=== PATIENT | female | born 1960 | race Caucasian/White ===

== ENCOUNTER 2017-11-08 21:05 | Emergency (ER) | payer MEDICARE, MEDICAID ==
[~2017-11-08 21:05] MED LIST changes: -HYDR-4309 PO; -LEVO112T44 PO; -METF-411 PO; -MIRT-25 PO; -PREG150C33 PO; -SIMV-49 PO
--- NOTE | 2017-11-08 21:08 | ER Report ---
History and Physical Time Seen By MD: 21:08 HPI/ROS CHIEF COMPLAINT: Sharp left upper chest pain HISTORY OF PRESENT ILLNESS: 57-year-old female brought in by EMS from home complaining of sharp left upper sternal chest pain throughout the day. She notes a mild shortness of breath. She notes the pain waxes and wanes. She notes changes with breathing. She's had no productive cough or fever. She denies cardiac history. EMS administered aspirin and gave syringe spray sublingual with some improvement of the pain. Patient denies leg swelling or calf pain. Patient denies GERD symptoms. Patient's a type II diabetic on metformin REVIEW OF SYSTEMS: Respiratory: No cough, no dyspnea. Cardiovascular: As above Gastrointestinal: No vomiting, no abdominal pain. Musculoskeletal: No back pain. Allergies: Coded Allergies: sulfamethoxazole (Verified Allergy, Severe, CHEST TIGHTNESS/SOB, 10/05/15) trimethoprim (Verified Allergy, Severe, CHEST TIGHTNESS/SOB, 10/05/15) Penicillins (Verified Allergy, Mild, FLU SYMPTOMS, 10/05/15) celecoxib (Verified Adverse Reaction, Severe, SEVERE LEG SPASMS, 10/05/15) cephalexin (Verified Adverse Reaction, Severe, SEVERE HEADACHE, 10/05/15) clarithromycin (Verified Adverse Reaction, Severe, NAUSEA/VOMITING, 10/05/15 ) AND SEVERE HEADACHE. levofloxacin (Verified Adverse Reaction, Severe, THRUSH, 10/05/15) Uncoded Allergies: ADHESIVE FORM LIDOCAINE PATCHES (Allergy, Intermediate, HEADACHE, 09/07/11) Home Meds Active Scripts Hydrocodone Bit/Acetaminophen (NORCO 5-325 TABLET) 1 Each Tablet, 1 EACH PO Q4H Y for PAIN, #12 TAB Prov:SHAINA MOREAU DO 11/08/17 Hydrocodone Bit/Acetaminophen (HYDROCODON-ACETAMINOPHEN 5-325) 1 Each Tablet, 1 EACH PO Q4-6H Y for PAIN, #10 TAB 0 Refills Prov:YASIR EPPERSON MD 10/05/15 Reported Medications Mirtazapine (MIRTAZAPINE) 30 Mg Tablet, 30 MG PO QHS 11/08/17 Simvastatin (SIMVASTATIN) 20 Mg Tablet, 10 MG PO QDAY, TAB 11/08/17 Levothyroxine Sodium (SYNTHROID) 112 Mcg Tablet, 112 MCG PO QDAY, TAB 11/08/17 Pregabalin (LYRICA) 150 Mg Capsule, 150 MG PO BID, CAPSULE 11/08/17 Metformin Hcl (METFORMIN HCL) 500 Mg Tablet, 1 TAB PO BID, TAB 11/08/17 Tretinoin 0.025% Cream (TRETINOIN 0.025% CREAM) 20 Gm Cream..g., 20 GM TP, TUB 10/05/15 Simvastatin (SIMVASTATIN) 10 Mg Tablet, 10 MG PO HS, TAB 10/05/15 Minocycline Hcl (MINOCYCLINE HCL) 100 Mg Capsule, 100 MG PO QDAY, CAPSULE 10/05/15 Quetiapine Fumarate (Seroquel) 50 Mg Tablet, 50 MG PO QHS Y 09/19/11 Cetirizine Hcl (Zyrtec) 10 Mg Capsule, 10 MG PO Y 09/07/11 Tramadol Hcl (Ultram) 50 Mg Tab, 100 MG PO TID, 0 Refills 10/25/10 Nitroglycerin (Nitroquick) 0.4 Mg Subl, 0.4 MG SL PRN, 0 Refills As needed for chest pain. 10/25/10 Famotidine (Pepcid) 20 Mg Tab, 20 MG PO BID, 0 Refills 10/25/10 Diazepam (Valium) 5 Mg Tab, 5 MG PO QID, 0 Refills 10/25/10 Baclofen (Lioresal) 10 Mg Tab, 20 MG PO BID, 0 Refills 10/25/10 Valacyclovir Hcl (Valtrex) 1,000 Mg Tablet, 1000 MG PO DAILY, 0 Refills 10/25/10 Multivits,Th W-Ca,Fe,Oth Min (Thera M) 1 Tab Tablet, 1 TAB PO DAILY, 0 Refills 10/25/10 Escitalopram Oxalate (Lexapro) 20 Mg Tablet, 30 MG PO QDAY, 0 Refills 10/25/10 Discontinued Reported Medications Clindamycin Phosphate (CLINDAGEL) 40 Ml Gel..ml., 40 ML TP 10/05/15 Mirtazapine (Remeron) 30 Mg Tablet, 45 MG PO HS, 0 Refills 10/25/10 Levothyroxine Sodium (Synthroid/Levothroid) 0.075 Mg Tab, 0.88 MCG PO QDAY, 0 Refills 10/25/10 Discontinued Scripts Neomycin/Polymyxin B Sulf/Hc ([id number] EAR SUSP) 10 Ml Drops.susp, 4 DROP OT QID, #1 BOTTLE 0 Refills Prov:YASIR EPPERSON Leonela FARFAN 10/05/15 Past Medical/Surgical History Patient has a past medical history of trigeminal neuralgia, pericarditis, headaches, DVTs, hypertension, sleep apnea, pleurisy, irritable bowel syndrome, GERD, arthritis, back pain, hypothyroidism, PTSD, depression, previous suicide attempt. Patient has a surgical history of a cervical fusion C4-C7, hysterectomy, bladder sling, cholecystectomy. Hx Smoking: Yes (OCC) Smoking Status: Light Tobacco Smoker Hx Substance Use Disorder: No (EXPERIMENTED IN HIGH SCHOOL) Hx Alcohol Use: No Constitutional Vital Sign - Last 24 Hours 11/08/17 11/08/17 11/08/17 11/08/17 21:10 21:10 21:12 21:20 Temp 99.7 Pulse 71 64 Resp 16 B/P (MAP) 126/81 126/81 (96) Pulse Ox 95 95 O2 Delivery Room Air O2 Flow Rate 2.0 11/08/17 11/08/17 11/08/17 11/08/17 21:30 21:35 21:36 21:54 Pulse 66 Resp 16 B/P (MAP) 109/71 (84) 120/78 (92) 129/73 (91) Pulse Ox 96 11/08/17 11/08/17 11/08/17 22:00 22:05 22:10 Pulse 65 63 B/P (MAP) 123/68 (86) Pulse Ox 97 97 Physical Exam Vital signs stable, afebrile, pulse ox normal General Appearance: The patient is alert, has no immediate need for airway protection and no current signs of toxicity. Mild distress HEENT: Pupils equal and round no injection. TMs normal, oropharynx with mild erythema, no exudate or petechiae, mucous members are moist Respiratory: Chest is non tender, lungs are clear to auscultation, Moderate left upper sternal marginal tenderness Cardiac: regular rate and rhythm Gastrointestinal: Abdomen is soft and non tender, no masses, bowel sounds normal. Musculoskeletal: Neck: Neck is supple and non tender. Extremities have full range of motion and are non tender. No edema, no calf tenderness Skin: No rashes or lesions. DIFFERENTIAL DIAGNOSIS: After history and physical exam differential diagnosis was considered for chest pain including but not limited to myocardial ischemia, pericarditis pulmonary embolus, chest wall pain, pleural inflammation and pulmonary infectious causes. Medical Decision Making Data Points Result Diagram: 11/08/17212111/08/172121 Laboratory Hematology Test 11/08/17 21:22 Red Blood Count 4.47 M/uL (4.17-5.56) Mean Corpuscular Volume 84.4 fL (80.0-96.0) Mean Corpuscular Hemoglobin 28.0 pg (26.0-33.0) Mean Corpuscular Hemoglobin Concent 33.1 g/dL (32.0-36.0) Red Cell Distribution Width 14.5 % (11.5-14.5) Mean Platelet Volume 9.3 fL (7.2-11.1) Neutrophils (%) (Auto) 41.6 % (39.4-72.5) Lymphocytes (%) (Auto) 47.6 % (17.6-49.6) Monocytes (%) (Auto) 6.9 % (4.1-12.4) Eosinophils (%) (Auto) 3.3 % (0.4-6.7) Basophils (%) (Auto) 0.6 % (0.3-1.4) Nucleated RBC Relative Count (auto) 0.0 /100WBC Neutrophils # (Auto) 5.4 K/uL (2.0-7.4) Lymphocytes # (Auto) 6.2 K/uL (1.3-3.6) Monocytes # (Auto) 0.9 K/uL (0.3-1.0) Eosinophils # (Auto) 0.4 K/uL (0.0-0.5) Basophils # (Auto) 0.1 K/uL (0.0-0.1) Nucleated RBC Absolute Count (auto) 0.00 K/uL Erythrocyte Sedimentation Rate 20 mm/HOUR (0-30) D-Dimer Quantitative (PE/DVT) 0.36 ug/ml (0-0.50) Sodium Level 142 mmol/L (137-145) Potassium Level 3.4 mmol/L (3.5-5.0) Chloride Level 102 mmol/L (98-107) Carbon Dioxide Level 30 mmol/L (22-31) Blood Urea Nitrogen 20 mg/dl (7-18) Creatinine 1.00 mg/dl (0.52-1.04) Glomerular Filtration Rate Calc 56.7 Random Glucose 104 mg/dl (75-110) Calcium Level 8.5 mg/dl (8.4-10.2) Total Bilirubin 0.5 mg/dl (0.2-1.3) Aspartate Amino Transf (AST/SGOT) 43 U/L (0-35) Alanine Aminotransferase (ALT/SGPT) 47 U/L (0-56) Alkaline Phosphatase 80 U/L (0-126) Troponin I < 0.012 ng/ml C-Reactive Protein 1.4 mg/dl (<1.0) B-Type Natriuretic Peptide 108 pg/ml (0-100) Total Protein 6.7 g/dl (6.3-8.2) Albumin 3.7 g/dl (3.5-5.0) Chemistry Test 11/08/17 21:22 White Blood Count 13.1 k/uL (4.5-11.0) Red Blood Count 4.47 M/uL (4.17-5.56) Hemoglobin 12.5 g/dL (12.0-16.0) Hematocrit 37.8 % (34.0-47.0) Mean Corpuscular Volume 84.4 fL (80.0-96.0) Mean Corpuscular Hemoglobin 28.0 pg (26.0-33.0) Mean Corpuscular Hemoglobin Concent 33.1 g/dL (32.0-36.0) Red Cell Distribution Width 14.5 % (11.5-14.5) Platelet Count 261 K/uL (150-450) Mean Platelet Volume 9.3 fL (7.2-11.1) Neutrophils (%) (Auto) 41.6 % (39.4-72.5) Lymphocytes (%) (Auto) 47.6 % (17.6-49.6) Monocytes (%) (Auto) 6.9 % (4.1-12.4) Eosinophils (%) (Auto) 3.3 % (0.4-6.7) Basophils (%) (Auto) 0.6 % (0.3-1.4) Nucleated RBC Relative Count (auto) 0.0 /100WBC Neutrophils # (Auto) 5.4 K/uL (2.0-7.4) Lymphocytes # (Auto) 6.2 K/uL (1.3-3.6) Monocytes # (Auto) 0.9 K/uL (0.3-1.0) Eosinophils # (Auto) 0.4 K/uL (0.0-0.5) Basophils # (Auto) 0.1 K/uL (0.0-0.1) Nucleated RBC Absolute Count (auto) 0.00 K/uL Erythrocyte Sedimentation Rate 20 mm/HOUR (0-30) D-Dimer Quantitative (PE/DVT) 0.36 ug/ml (0-0.50) Glomerular Filtration Rate Calc 56.7 Calcium Level 8.5 mg/dl (8.4-10.2) Total Bilirubin 0.5 mg/dl (0.2-1.3) Aspartate Amino Transf (AST/SGOT) 43 U/L (0-35) Alanine Aminotransferase (ALT/SGPT) 47 U/L (0-56) Alkaline Phosphatase 80 U/L (0-126) Troponin I < 0.012 ng/ml C-Reactive Protein 1.4 mg/dl (<1.0) B-Type Natriuretic Peptide 108 pg/ml (0-100) Total Protein 6.7 g/dl (6.3-8.2) Albumin 3.7 g/dl (3.5-5.0) Coagulation Test 11/08/17 21:22 D-Dimer Quantitative (PE/DVT) 0.36 ug/ml EKG/Imaging EKG Interpretation 12 lead EK Rhythm: normal sinus rhythm [place]: normal QRS: normal ST segments: normal, no evidence of ischemia or dysrhythmia, essentially normal EKG Imaging X-ray: Two-view chest x-ray was obtained. I viewed the images myself on the PACS system. My interpretation of the images is: Lung de la cruz are clear, no effusions, mediastinum is normal. The radiologist interpretation had no clinically significant variation from this interpretation. ED Course/Re-evaluation ED Course Patient was admitted to an examination room. H&P was done. The differential diagnoses was considered. On clinical examination. Patient has chest wall tenderness on conical examination. Her pain did get better with nitroglycerin sublingual. Patient has no cardiac history. Her initial EKG is unremarkable. Further diagnostic studies show a normal d-dimer, normal troponin. She's had pain all day long. She responds well to Toradol and fentanyl. Patient be discharged home. A conservative treatment plan of ibuprofen for inflammatory pain relief. Heating pad to the chest wall. She's given a limited supply of [place] for temporary pain relief. She is advised to follow-up with her primary care doctor, Dr. Bunch if not improved in 3-5 days. Decision to Disposition Date: Nov 08, 2017 Decision to Disposition Time: 22:06 Depart Departure Latest Vital Signs Vital Signs Date Time Temp Pulse Resp B/P (MAP) Pulse Ox O2 Delivery O2 Flow Rate FiO2 11/08/17 22:10 63 97 11/08/17 22:00 123/68 (86) 11/08/17 21:35 16 11/08/17 21:10 2.0 11/08/17 21:10 99.7 Room Air Impression: Primary Impression: Costochondritis Condition: Improved Disposition: HOME OR SELF-CARE Referrals: CHERI BLAKE DO (PCP) PAMELLA BUNCH DO New Scripts Hydrocodone Bit/Acetaminophen (NORCO 5-325 TABLET) 1 Each Tablet 1 EACH PO Q4H Y for PAIN, #12 TAB Prov: SHAINA MOREAU DO 11/08/17 Patient Instructions: Costochondritis (ED) Additional Instructions: Take ibuprofen 200 mg 3 tablets 3 times a day with food Apply heating pad to your left chest wall All up with Dr. Bunch if unimproved in 3-5 days SHAINA MOREAU DO Nov 08, 2017 21:08
[2017-11-08] MEDS ORDERED: KETOROLAC 30 MG/ML VIAL IVP ONE (21:15)
[2017-11-08] MEDS ORDERED: fentaNYL CITR 100 MCG/2 ML AMP IVP ONE (21:15)
[2017-11-08 21:28] LABS: PLATELET COUNT, AUTOMATED 261 K/uL (150-450)
--- NOTE | 2017-11-08 21:41 | EKG ---
[place] [facility] [place] NAME: RICHARD ENCARNACION : [id number] MR: [id number] V: [id number] EXAM DATE: ORDERING PHYSICIAN: SHAINA MOREAU TECHNOLOGIST: DESHAWN Test Reason : CP Blood Pressure : / mmHG Vent. Rate : 064 BPM Atrial Rate : 064 BPM P-R Int : 172 ms QRS Dur : 084 ms QT Int : 402 ms P-R-T Axes : 068 -04 030 degrees QTc Int : 414 ms Normal sinus rhythm Normal ECG When compared with ECG of 12-JAN-2013 19:55, ST no longer elevated in Inferior leads QT has shortened Confirmed by KALPESH CHANG ([id number]) on 11/09/2017 6:27:43 AM Referred By: Confirmed By:KALPESH CHANG
[2017-11-08] MEDS ORDERED: LEVO112T44 PO (21:50)
[2017-11-08] MEDS ORDERED: METF-411 PO (21:50)
[2017-11-08] MEDS ORDERED: PREG150C33 PO (21:50)
[2017-11-08] MEDS ORDERED: SIMV-49 PO (21:50)
[2017-11-08] MEDS ORDERED: MIRT-25 PO (21:51)
[2017-11-08 22:00] VITALS: BP 123/68
[2017-11-08] MEDS ORDERED: HYDR-4309 PO (22:07)
--- NOTE | 2017-11-08 22:19 | RADIOLOGY IMAGING REPORT ---
FACILITY: [facility] PATIENT NAME: Venita Del Valle : 1960 MR: [id number] V: [id number] EXAM DATE: ORDERING PHYSICIAN: SHAINA MOREAU TECHNOLOGIST: [place] [facility] [place]: Venita Del Valle : 1960 Visit/Account:[id number] Date of Sevice: 11/08/2017 CHEST PA AND LAT HISTORY: Chest pain. History of pleurisy, pericarditis, and COPD. COMPARISON: 06/21/2014 and studies dating to 11/11/2005.. TECHNIQUE: PA and lateral views of the chest. FINDINGS: Tubes/lines/hardware: There are a plate and screws from prior anterior cervical fusion, unchanged. Pulmonary: There is scarring or atelectasis at the right costophrenic angle, unchanged. Left lung is clear. There is stable mild right hemidiaphragm elevation. There is no pneumothorax or pleural effusi on. Cardiomediastinal: Cardiac and mediastinal silhouettes are within normal limits. Bones/soft tissues: No acute osseous abnormality. There is mild degenerative change of the spine. The re are scattered Schmorl nodes. The visible abdomen is normal. There are surgical clips in the right upper quadrant from cholecystectomy. IMPRESSION: 1. Stable chest without acute process. Report Dictated By: Elsie Manuel at 11/08/2017 10:13 PM Report E-Signed By: Elsie Manuel at 11/08/2017 10:16 PM WSN:[id number]
== END 2017-11-08 22:40 | disposition home or self-care (01) ==
LOC: ER 21:24
DX: M94.0 Chondrocostal junction syndrome [Tietze] (principal)
CPT/HCPCS: 71046; 83880; 84484; 85025; 85379; 85651; 86140; 93005; 96374; 96375; 99284; J1885; J3010; 82040; 82247; 82310; 82374; 82435; 82565; 82947; 84075; 84132; 84155; 84295; 84450; 84460; 84520

== ENCOUNTER → 2017-11-08 | Outpatient (CLI) | payer MEDICARE, MEDICAID ==
[~2017-11-08] MED LIST: ACE325 PO; ACE500 PO; ALBUDR INH; ASC500 PO; ASPI-715 PO; BAC10 PO; BACDS PO; BACL-51 PO; CARXR100 PO; CELE-1 PO; CEP250 PO; CETI10CA8 PO; CLIN40GE2 TP; CLO75 PO; CLON1 PO; COREDS OT; DIA5 PO; DIP25 PO; DIPH-740 PO; DOXY150T6 PO; DOXY50SY2 PO; DYA PO; ESCI20TA38 PO; ESTR0.5T18 PO; ESTR1 PO; FAM20 PO; FEXO180T74 PO; GAB100 PO; GAB300 PO; HYD2 PO; HYDR-3074 PO; HYDR-4309 PO; HYDR4TAB75 PO; HYDR50CA47 PO; HYDRO25 PO; HYOS-7 PO; IBUP-1618 PO; KET10 PO; KETO-58 PO; LEV500 PO; LEV75 PO; LEVO112T44 PO; LEVO75TA68 PO; LOM PO; LOR05 PO; LOR5 PO; LOR5/325 PO; LYSI500C3 PO; METF-411 PO; METH-280 PO; METH4TAB57 PO; METO25TA91 PO; METO25TA93 PO; MINO100C27 PO; MIR15 PO; MIRT-18 PO; MIRT-20 PO; MIRT-25 PO; MOM PO; MULT-806 PO; MULT1CAP41 PO; MUP2T TOP; MYLL PO; NAP250 PO; NIT4 SL; NOR5/325 PO; NYSL PO; OXYC10TA67 PO; OXYIR PO; PAN40 PO; PEN250 PO; PER PO; PHENA200 PO; PRE20 PO; PRE50 PO; PREG150C33 PO; PREG25 PO; PREG75CA61 PO; PRO25 PO; QUE100 PO; QUET50TA21 PO; SIMV-49 PO; SIMV10TA98 PO; SUCR1TAB51 PO; TRA50 PO; TRAZ50 PO; TRET20CR37 TP; TRIA1CAP81 PO; TRIAM/HCTZ; TUM500 PO; VALA100062 PO; WAR75 PO; [UNRECOGNIZED DRUG - CODE] IV; [UNRECOGNIZED DRUG - CODE] PO
== END ==
LOC: AMB 20:50
PROVIDERS: ATTEND Nurse Practitioner
DX: R07.9 Chest pain, unspecified (principal)
CPT/HCPCS: A0425; A0427

== ENCOUNTER → 2017-11-23 | Outpatient (CLI) | payer MEDICARE, MEDICAID ==
[~2017-11-23] MED LIST changes: +HYDR-4309 PO; +LEVO112T44 PO; +METF-411 PO; +MIRT-25 PO; +PREG150C33 PO; +SIMV-49 PO
--- NOTE | 2017-11-23 18:13 | RADIOLOGY IMAGING REPORT ---
FACILITY: PATIENT NAME: Venita Del Valle : 1960 MR: [id number] V: [id number] EXAM DATE: ORDERING PHYSICIAN: GIOVANNI SANTOS TECHNOLOGIST: Location: [facility] - [place] Patient: Venita Del Valle : 1960 Visit/Account:[id number] Date of Sevice: 11/23/2017 HAND COMPLETE RIGHT History: Right hand pain. Comparison study: None. Findings: There is no fracture involving the right hand. There are findings of joint space narrowing subchondral sclerosis involving the DIP joints of digits 2 through 4. The findings are most prominent in the second and third digits. There are mild findings of osteoarthrosis involving the right first CMC joint. IMPRESSION: 1. No findings of a fracture. 2. Findings of what appear to be osteoarthrosis as described above are most prominent in the DIP join ts of digits 2 and 3. Report Dictated By: Yuri Saunders MD at 11/23/2017 6:08 PM Report E-Signed By: Yuri Saunders MD at 11/23/2017 6:09 PM WSN:[id number]
== END ==
LOC: RAD 16:50
PROVIDERS: ATTEND Physician Assistant Medical
DX: M19.041 Primary osteoarthritis, right hand (principal)

== ENCOUNTER 2017-12-06 16:15 | Outpatient (RCR) | payer MEDICARE, MEDICAID ==
--- NOTE | 2017-11-19 17:43 | PT INITIAL EVALUATION ---
MEDICAL DIAGNOSIS: M[age] LBP TREATMENT DIAGNOSIS: Same DATE OF ONSET: 11/14/17 SUBJECTIVE: Venita Del Valle presents to PT for a flare of LBP with sudden onset while shopping, in the L lower thoracic to L-S area. She states this is unusual for her, that usually her back flares with sitting. I've worked with Venita for L5 radicular pain in the past and she's donne well with exercise, manual therapy. Venita relates this flare limits her gait endurance, sitting tolerance for crafting, standing for cooking. Oswestry Disability Index 40% impairment. Pain location is L T10/11 to L-S and described as stabbing pain. Pain scale is 7 on a ten point pain scale. Pain is worse with sitting, bending , walking and better with nothing reduces the pain. She denies extremity paresthesia. REHAB PROBLEM LIST: Increased Pain Decreased ROM Decreased Strength Impaired Transfers Decreased Mobility Decreased Gait PREVIOUS MEDICAL HISTORY: Depression, thyroid disorder, sleep apnea, four level cervical fusion, bladder sling, borderline behavioral disorder, suicide attempt, peg tube. OCCUPATION: Disabled OBJECTIVE: Posture: R lateral lumbar shift, T10-L1 reduced lordosis. ROM: AROM lumbar spine 50% flexion, symptoms, extension 75%, reduces symptoms, L side glide painful, limited, R side glide full, reduces pain. AROM thoracic spine 75% flexion, extension 50% with T10-12 hypomobile, painful, L rotation reduced, pain limited, R rotation full, reduces pain. Strength: NT today, but prone extension with arm fatigue. Palpation: Painful over the L T9/10/11/12/L1 facets. Special Tests: Negative SLR, DTR's 2/3 LE's. Mobility: Lower thoracic, L-S pain with sit to prone. Gait: Reduced trunk rotation, mildly flexed trunk. ASSESSMENT: Venita Del Valle presents with L5 HNP posture, T10-L1 facet dysfunction in extension creating sharp pain with extension, posture and pain limiting sitting tolerance, walking. She had less lumbar lateral shift and improved L lower thoracic joint mobility after manual therapy. She's started on ROM HEP to reduce pain. Short Term Goals/Patient's Goals One month: Venita stands with a midline spine, tolerates sitting 20 minutes, walks short community distances without L lower thoracic pain. Two months: Venita ambulates >1,000 feet without lower thoracic back pain, stands 20-30 min. cooking, and sits 30-40 min. with LBP 2-07/10. PLAN: Patient to be seen for Manual Therapy, Strengthening/condition, Ice/Heat , Range of Motion, Spinal Stabilization, Stretching, Electrical Stim, Posture/ Body mechanics, Home Exercise Program 2x/Week for 2 Months Thank you for this referral. If you have any questions, comments, or concerns about this report or plan, please contact me at . MTDD
--- NOTE | 2017-12-13 16:38 | PT PLAN OF CARE ---
Physician: Dr. Sunday Bunch Patient is being seen: 1-2x/week Therapist: Laine Hearn, PT Medical Diagnosis: M54.5 LBP Treatment Diagnosis: Same Date of Onset: 11/14/17 Date of Initial Evaluation: 11/19/17 Date patient was last seen: 12/06/17 Number of treatments: 4 Number of cancellations/No shows: 4 INTERVENTIONS: Manual Therapy, Strengthening/condition, Range of Motion, Spinal Stabilization, Stretching, HEP GOALS/PATIENT'S GOAL: One month: Venita stands with a midline spine (met), tolerates sitting 20 minutes (not met), walks short community distances without L lower thoracic pain (not met). Two months: Venita ambulates >1,000 feet without lower thoracic back pain, stands 20-30 min. cooking, and sits 30-40 min. with LBP 2-3/10 (all not met). Patient Compliance: Good Prognosis: Excellent Reasons for discontinuing therapy: S: Venita requested DC from PT as she has some mental health issues she needs to take care of. She related her thoracolumbar pain had switched from acute stabbing pain to a dull ache. As of 12/06/17: Posture: Midline lumbar spine. ROM: AROM lumbar and thoracic spine WNL. Strength: Core strength 3/5. A/P: Venita Del Valle improved spinal AROM, improved the type of LBP. She' has some stressors she needs to deal with, so per her request, I'll DC PT to HEP. If I can be of help with Venita's physical therapy in the future, I'd be happy to work with her. Thank you. DILCIA
== END 2017-12-06 18:00 | disposition home or self-care (01) ==
LOC: PT 16:15
PROVIDERS: ATTEND Family Medicine
DX: M54.5 Low back pain (principal); E03.4 Atrophy of thyroid (acquired); E11.9 Type 2 diabetes mellitus without complications; I10 Essential (primary) hypertension; F32.9 Major depressive disorder, single episode, unspecified; G47.30 Sleep apnea, unspecified; Z98.1 Arthrodesis status; Z93.1 Gastrostomy status
CPT/HCPCS: 97162

== ENCOUNTER 2018-02-26 17:30 | Emergency (ER) | payer MEDICARE, MEDICAID ==
[~2018-02-26 17:30] MED LIST changes: -HYDR-4309 PO; +HYDR-653 PO; -METF-411 PO; +METF-450 PO
--- NOTE | 2018-02-26 17:58 | ER Report ---
History and Physical Time Seen By MD: 17:58 Hx. of Stated Complaint: LEFT EAR PAIN, DIARRHEA WITH CONFUSION AND WEAKNESS FOR TWO DAYS HPI/ROS CHIEF COMPLAINT: Vomiting, confusion, drainage from left ear HISTORY OF PRESENT ILLNESS: 57-year-old female patient presents to the emergency room with complaint of vomiting, confusion and drainage from the left ear. Patient states that she and a friend of hers were staying down in [place], they had dinner and both became ill. Patient became ill for several days. She denies any fevers but states she was chilled. Patient did have diarrhea, nausea and vomiting. Patient states that she doesn't recall the last time she had any vomiting as she was not with it at that time. She states that she did take some Imodium today. She states that did seem to help with the diarrhea. Patient was able to eat today, she is able to keep down some soup. The patient has been drinking fluids. REVIEW OF SYSTEMS: Respiratory: No cough, no dyspnea. Cardiovascular: No chest pain, no palpitations. Gastrointestinal: As noted above Musculoskeletal: No back pain. Allergies: Coded Allergies: sulfamethoxazole (Verified Allergy, Severe, CHEST TIGHTNESS/SOB, 02/26/18) trimethoprim (Verified Allergy, Severe, CHEST TIGHTNESS/SOB, 02/26/18) Penicillins (Verified Allergy, Mild, FLU SYMPTOMS, 02/26/18) celecoxib (Verified Adverse Reaction, Severe, SEVERE LEG SPASMS, 02/26/18) cephalexin (Verified Adverse Reaction, Severe, SEVERE HEADACHE, 02/26/18) clarithromycin (Verified Adverse Reaction, Severe, NAUSEA/VOMITING, 02/26/18) AND SEVERE HEADACHE. levofloxacin (Verified Adverse Reaction, Severe, THRUSH, 02/26/18) Uncoded Allergies: ADHESIVE FORM LIDOCAINE PATCHES (Allergy, Intermediate, HEADACHE, 09/07/11) Home Meds Active Scripts Doxycycline Hyclate (DOXYCYCLINE HYCLATE) 100 Mg Tablet, 100 MG PO BID, #12 TAB Prov:HAROON MERCADO 02/26/18 Mupirocin Calcium (BACTROBAN) 15 Gm Cream..g., 1 SUHAS TP TID for 7 Days, #1 TUBE Prov:HAROON MERCADO 02/26/18 Reported Medications Mirtazapine (MIRTAZAPINE) 30 Mg Tablet, 30 MG PO QHS 11/08/17 Levothyroxine Sodium (SYNTHROID) 112 Mcg Tablet, 112 MCG PO QDAY, TAB 11/08/17 Pregabalin (LYRICA) 150 Mg Capsule, 150 MG PO BID, CAPSULE 11/08/17 Metformin Hcl (METFORMIN HCL) 500 Mg Tablet, 1 TAB PO BID, TAB 11/08/17 Simvastatin (SIMVASTATIN) 10 Mg Tablet, 10 MG PO HS, TAB 10/05/15 Cetirizine Hcl (Zyrtec) 10 Mg Capsule, 10 MG PO PRN 09/07/11 Tramadol Hcl (Ultram) 50 Mg Tab, 100 MG PO TID, 0 Refills 10/25/10 Famotidine (Pepcid) 20 Mg Tab, 20 MG PO BID, 0 Refills 10/25/10 Diazepam (Valium) 5 Mg Tab, 5 MG PO QID, 0 Refills 10/25/10 Baclofen (Lioresal) 10 Mg Tab, 20 MG PO BID, 0 Refills 10/25/10 Valacyclovir Hcl (Valtrex) 1,000 Mg Tablet, 1000 MG PO DAILY, 0 Refills 10/25/10 Escitalopram Oxalate (Lexapro) 20 Mg Tablet, 30 MG PO QDAY, 0 Refills 10/25/10 Discontinued Reported Medications Simvastatin (SIMVASTATIN) 20 Mg Tablet, 10 MG PO QDAY, TAB 11/08/17 Tretinoin 0.025% Cream (TRETINOIN 0.025% CREAM) 20 Gm Cream..g., 20 GM TP, TUB 10/05/15 Minocycline Hcl (MINOCYCLINE HCL) 100 Mg Capsule, 100 MG PO QDAY, CAPSULE 10/05/15 Quetiapine Fumarate (Seroquel) 50 Mg Tablet, 50 MG PO QHS PRN 09/19/11 Nitroglycerin (Nitroquick) 0.4 Mg Subl, 0.4 MG SL PRN, 0 Refills As needed for chest pain. 10/25/10 Multivits,Th W-Ca,Fe,Oth Min (Thera M) 1 Tab Tablet, 1 TAB PO DAILY, 0 Refills 10/25/10 Discontinued Scripts Hydrocodone Bit/Acetaminophen (NORCO 5-325 TABLET) 1 Each Tablet, 1 EACH PO Q4H PRN for PAIN, #12 TAB Prov:SHAINA MOREAU DO 11/08/17 Hydrocodone Bit/Acetaminophen (HYDROCODON-ACETAMINOPHEN 5-325) 1 Each Tablet, 1 EACH PO Q4-6H PRN for PAIN, #10 TAB 0 Refills Prov:YASIR EPPERSON MD 10/05/15 Past Medical/Surgical History Patient has a past medical history of trigeminal neuralgia, migraines, pericarditis, DVT, hypertension, hyperlipidemia, sleep apnea, COPD, reflux, arthritis, foot and wrist fracture, back pain, vocal cord paralyzed, type 2 diabetes, hypothyroidism, drug use in high school, PTSD, depression, suicide attempt. Patient has a surgical history of feeding tube, cervical fusion, hysterectomy, bladder sling, cholecystectomy. Patient has a family medical history of cancer, CAD, psychiatric problems. Reviewed Nurses Notes: Yes Hx Smoking: Yes (OCC) Smoking Status: Light Tobacco Smoker Hx Substance Use Disorder: No (EXPERIMENTED IN HIGH SCHOOL) Hx Alcohol Use: No Constitutional Vital Sign - Last 24 Hours 02/26/18 02/26/18 17:43 19:39 Temp 99.4 Pulse 89 85 Resp 16 16 B/P (MAP) 154/94 132/85 (101) Pulse Ox 94 95 O2 Delivery Nasal Cannula Room Air Physical Exam General Appearance: The patient is alert, has no immediate need for airway protection and no current signs of toxicity. Respiratory: Chest is non tender, lungs are clear to auscultation. Cardiac: regular rate and rhythm Gastrointestinal: Abdomen is soft and non tender, no masses, bowel sounds normal. Musculoskeletal: Neck: Neck is supple and non tender. Extremities have full range of motion and are non tender. Skin: No rashes or lesions. DIFFERENTIAL DIAGNOSIS: After history and physical exam differential diagnosis was considered for otitis externa, gastroenteritis, sinusitis, stroke. Medical Decision Making Data Points Result Diagram: 02/26/18 1814 02/26/184 Laboratory Hematology Test 02/26/18 18:14 02/26/18 18:33 Red Blood Count 4.89 M/uL (4.17-5.56) Mean Corpuscular Volume 82.9 fL (80.0-96.0) Mean Corpuscular Hemoglobin 27.3 pg (26.0-33.0) Mean Corpuscular Hemoglobin Concent 32.9 g/dL (32.0-36.0) Red Cell Distribution Width 14.4 % (11.5-14.5) Mean Platelet Volume 9.0 fL (7.2-11.1) Neutrophils (%) (Auto) % (39.4-72.5) Lymphocytes (%) (Auto) % (17.6-49.6) Monocytes (%) (Auto) % (4.1-12.4) Eosinophils (%) (Auto) % (0.4-6.7) Basophils (%) (Auto) % (0.3-1.4) Nucleated RBC Relative Count (auto) /100WBC Neutrophils # (Auto) K/uL (2.0-7.4) Lymphocytes # (Auto) K/uL (1.3-3.6) Monocytes # (Auto) K/uL (0.3-1.0) Eosinophils # (Auto) K/uL (0.0-0.5) Basophils # (Auto) K/uL (0.0-0.1) Nucleated RBC Absolute Count (auto) K/uL Neutrophils % (Manual) 52 % (39.4-72.5) Lymphocytes % (Manual) 19 % (17.6-49.6) Atypical Lymphocytes % 17 % Monocytes % (Manual) 8 % (4.1-12.4) Eosinophils % (Manual) 4 % (0.4-6.7) Basophils % (Manual) 0 % (0.3-1.4) Peripheral Blood Smear Yes Y/N Sodium Level 140 mmol/L (137-145) Potassium Level 3.4 mmol/L (3.5-5.0) Chloride Level 98 mmol/L (98-107) Carbon Dioxide Level 33 mmol/L (22-31) Blood Urea Nitrogen 15 mg/dl (7-18) Creatinine 1.10 mg/dl (0.52-1.04) Glomerular Filtration Rate Calc 50.8 Random Glucose 94 mg/dl (75-110) Calcium Level 8.9 mg/dl (8.4-10.2) Total Bilirubin 0.4 mg/dl (0.2-1.3) Aspartate Amino Transf (AST/SGOT) 54 U/L (0-35) Alanine Aminotransferase (ALT/SGPT) 61 U/L (0-56) Alkaline Phosphatase 123 U/L (0-126) Total Protein 7.3 g/dl (6.3-8.2) Albumin 3.8 g/dl (3.5-5.0) Urine Color Faby Urine Clarity Slightly-cloudy Urine pH 6.0 pH (4.8-9.5) Urine Specific [place] 1.020 Urine Protein 30 mg/dL (NEGATIVE) Urine Glucose (UA) Negative mg/dL (NEGATIVE) Urine Ketones Negative mg/dL (NEGATIVE) Urine Blood Negative (NEGATIVE) Urine Nitrite Negative (NEGATIVE) Urine Bilirubin Negative (NEGATIVE) Urine Urobilinogen 2.0 mg/dL (0.2-1.9) Urine Leukocyte Esterase Trace (NEGATIVE) Urine RBC None /HPF (0-2/HPF) Urine WBC 5 /HPF (0-5/HPF) Urine Squamous Epithelial Cells Many /LPF (</=FEW) Urine Transitional Epithelial Cells Moderate /LPF (NONE-FEW) Urine Bacteria Few /HPF (NONE-FEW) Urine Hyaline Casts Moderate /LPF (NONE-FEW) Urine Mucus Few /HPF (NONE-FEW) Chemistry Test 02/26/18 18:14 02/26/18 18:33 White Blood Count 12.5 k/uL (4.5-11.0) Red Blood Count 4.89 M/uL (4.17-5.56) Hemoglobin 13.3 g/dL (12.0-16.0) Hematocrit 40.5 % (34.0-47.0) Mean Corpuscular Volume 82.9 fL (80.0-96.0) Mean Corpuscular Hemoglobin 27.3 pg (26.0-33.0) Mean Corpuscular Hemoglobin Concent 32.9 g/dL (32.0-36.0) Red Cell Distribution Width 14.4 % (11.5-14.5) Platelet Count 283 K/uL (150-450) Mean Platelet Volume 9.0 fL (7.2-11.1) Neutrophils (%) (Auto) % (39.4-72.5) Lymphocytes (%) (Auto) % (17.6-49.6) Monocytes (%) (Auto) % (4.1-12.4) Eosinophils (%) (Auto) % (0.4-6.7) Basophils (%) (Auto) % (0.3-1.4) Nucleated RBC Relative Count (auto) /100WBC Neutrophils # (Auto) K/uL (2.0-7.4) Lymphocytes # (Auto) K/uL (1.3-3.6) Monocytes # (Auto) K/uL (0.3-1.0) Eosinophils # (Auto) K/uL (0.0-0.5) Basophils # (Auto) K/uL (0.0-0.1) Nucleated RBC Absolute Count (auto) K/uL Neutrophils % (Manual) 52 % (39.4-72.5) Lymphocytes % (Manual) 19 % (17.6-49.6) Atypical Lymphocytes % 17 % Monocytes % (Manual) 8 % (4.1-12.4) Eosinophils % (Manual) 4 % (0.4-6.7) Basophils % (Manual) 0 % (0.3-1.4) Peripheral Blood Smear Yes Y/N Glomerular Filtration Rate Calc 50.8 Calcium Level 8.9 mg/dl (8.4-10.2) Total Bilirubin 0.4 mg/dl (0.2-1.3) Aspartate Amino Transf (AST/SGOT) 54 U/L (0-35) Alanine Aminotransferase (ALT/SGPT) 61 U/L (0-56) Alkaline Phosphatase 123 U/L (0-126) Total Protein 7.3 g/dl (6.3-8.2) Albumin 3.8 g/dl (3.5-5.0) Urine Color Faby Urine Clarity Slightly-cloudy Urine pH 6.0 pH (4.8-9.5) Urine Specific [place] 1.020 Urine Protein 30 mg/dL (NEGATIVE) Urine Glucose (UA) Negative mg/dL (NEGATIVE) Urine Ketones Negative mg/dL (NEGATIVE) Urine Blood Negative (NEGATIVE) Urine Nitrite Negative (NEGATIVE) Urine Bilirubin Negative (NEGATIVE) Urine Urobilinogen 2.0 mg/dL (0.2-1.9) Urine Leukocyte Esterase Trace (NEGATIVE) Urine RBC None /HPF (0-2/HPF) Urine WBC 5 /HPF (0-5/HPF) Urine Squamous Epithelial Cells Many /LPF (</=FEW) Urine Transitional Epithelial Cells Moderate /LPF (NONE-FEW) Urine Bacteria Few /HPF (NONE-FEW) Urine Hyaline Casts Moderate /LPF (NONE-FEW) Urine Mucus Few /HPF (NONE-FEW) Urinalysis Test 02/26/18 18:33 Urine Color Faby Urine Clarity Slightly-cloudy Urine pH 6.0 pH (4.8-9.5) Urine Specific [place] 1.020 Urine Protein 30 mg/dL (NEGATIVE) Urine Glucose (UA) Negative mg/dL (NEGATIVE) Urine Ketones Negative mg/dL (NEGATIVE) Urine Blood Negative (NEGATIVE) Urine Nitrite Negative (NEGATIVE) Urine Bilirubin Negative (NEGATIVE) Urine Urobilinogen 2.0 mg/dL (0.2-1.9) Urine Leukocyte Esterase Trace (NEGATIVE) Urine RBC None /HPF (0-2/HPF) Urine WBC 5 /HPF (0-5/HPF) Urine Squamous Epithelial Cells Many /LPF (</=FEW) Urine Transitional Epithelial Cells Moderate /LPF (NONE-FEW) Urine Bacteria Few /HPF (NONE-FEW) Urine Hyaline Casts Moderate /LPF (NONE-FEW) Urine Mucus Few /HPF (NONE-FEW) EKG/Imaging Imaging 2 VIEWS CHEST INDICATION: Cough and shortness of breath. COMPARISON: 11/08/2017. FINDINGS: Cardiomediastinal silhouette and pulmonary vessels within normal limits. There is no focal infiltrate or lobar consolidation. There is no pneumothorax or pleural effusion. Stable small nodule seen in left upper lobe. No new nodules. Chronic interstitial changes. Upper abdomen is unremarkable. No acute bony abnormality. Postsurgical change lower cervical spine without sequelae. IMPRESSION: 1. No acute cardiopulmonary process. Report Dictated By: Graeme Allred at 02/26/2018 6:56 PM Report E-Signed By: Graeme Allred at 02/26/2018 6:[address] Head without contrast Indication: Confusion. Comparison: 08/08/2010. Technique: Axial CT images were obtained through the brain from the skull base to the vertex without administration of IV contrast. Reformatted coronal and sagittal images were also obtained. One of the following dose optimization techniques was utilized in the performance of this exam: automated exposure control; adjustment of the mA and/or kV according to the patient's size; or use of an iterative reconstruction technique. Specific details can be referenced in the facility's radiology CT exam operational policy. Findings: No evidence of mass, mass effect, or midline shift. No acute intracranial hemorrhage or acute territorial infarction. No extra-axial fluid collection or hydrocephalus. No abnormal density. Polanco/white matter differentiation appears normal. Bony structures show no fractures or aggressive bony lesions. There is a calcific density which appears to be emanating from the superior right frontal bone and measures 8 mm. Previously this measured 4 mm. No s uspicious characteristics. Sinuses and mastoids visualized are clear. IMPRESSION: 1. No acute intracranial abnormality. 2. Nonaggressive benign-appearing round calcific density emanating from the superior right frontal bone. This is more prominent than previous examination. This may represent a bony exostosis. There is no sequelae and no aggressive features. Report Dictated By: Graeme Allred at 02/26/2018 6:58 PM Report E-Signed By: Graeme Allred at 02/26/2018 7:03 PM ED Course/Re-evaluation ED Course Patient was admitted and examined, history and physical were obtained. Differential diagnoses were considered. On examination lungs are clear, heart is regular, abdomen is soft and nontender. A CBC, CMP, urinalysis, chest x-ray, CT scan of the head were done. Lab results were unremarkable, patient did have an elevated white count of 12,500, however looking through her old records it does appear that she has a history of elevated white count. Last lites were normal, potassium was slightly low at 3.4. Patient had an elevated BUN of 1.1. Chest x-ray showed no acute cardiopulmonary processes, the CT scan of the head was normal. At this time I believe the patient likely does have an otitis externa which is draining. We'll go ahead and treat her with doxycycline. This will also cover any pulmonary infectious process that we may be missing on the x-ray. Patient will also be using Bactroban topically. She is given strict instructions not to insert the Q-tip into the ear beyond the wound. Patient is to follow-up with her primary care provider in one week. She is to return to the emergency room if condition worsens. I discussed this with the patient and she verbalized understanding and agreement with plan. Decision to Disposition Date: Feb 26, 2018 Decision to Disposition Time: 19:33 Depart Departure Latest Vital Signs Vital Signs Date Time Temp Pulse Resp B/P (MAP) Pulse Ox O2 Delivery O2 Flow Rate FiO2 02/26/18 19:39 85 16 132/85 (101) 95 Room Air 02/26/18 17:43 99.4 Impression: Primary Impression: Otitis externa Additional Impression: Otalgia of left ear Condition: Improved Disposition: HOME OR SELF-CARE Referrals: PAMELLA HOOKS DO (PCP) New Scripts Doxycycline Hyclate (DOXYCYCLINE HYCLATE) 100 Mg Tablet 100 MG PO BID, #12 TAB Prov: JESSYARELIHAROONNAGA BLUE 02/26/18 Mupirocin Calcium (BACTROBAN) 15 Gm Cream..g. 1 SUHAS TP TID for 7 Days, #1 TUBE Prov: ANA MERCADOZeferino BLUE 02/26/18 Patient Instructions: Otitis Externa (ED) Additional Instructions: Take antibiotics as directed. Limit activity by how you are feeling. Increase fluid intake. Clear liquid diet for the next 24-48 hours. After that you may advance diet as tolerated starting with complex carbohydrates; rice, bread or pasta. Follow up with your primary care provider in the next week. Return to the ER if condition worsens. Problem Qualifiers Primary Impression: Otitis externa Otitis externa type: other infective Chronicity: acute Laterality: left Qualified Codes: H60.392 - Other infective otitis externa, left ear HAROON MERCADO Feb 26, 2018 17:58
[2018-02-26] MEDS ORDERED: NS(*) 0.9% 1000 ML BAG 1,000 ML IV ONE (18:10)
[2018-02-26 18:32] LABS: PLATELET COUNT, AUTOMATED 283 K/uL (150-450)
--- NOTE | 2018-02-26 19:01 | RADIOLOGY IMAGING REPORT ---
FACILITY: [facility] PATIENT NAME: Venita Del Valle : 1960 MR: [id number] V: [id number] EXAM DATE: ORDERING PHYSICIAN: HAROON MERCADO TECHNOLOGIST: Location: [facility] Patient: Venita Del Valle : 1960 Visit/Account:[id number] Date of Sevice: 02/26/2018 2 VIEWS CHEST INDICATION: Cough and shortness of breath. COMPARISON: 11/08/2017. FINDINGS: Cardiomediastinal silhouette and pulmonary vessels within normal limits. There is no focal infiltrate or lobar consolidation. There is no pneumothorax or pleural effusion. Stable small nodule seen in left upper lobe. No new nodules. Chronic interstitial changes. Upper abdomen is unremarkable. No acute bony abnormality. Postsurgical change lower cervical spine wi thout sequelae. IMPRESSION: 1. No acute cardiopulmonary process. Report Dictated By: Graeme Allred at 02/26/2018 6:56 PM Report E-Signed By: Graeme Allred at 02/26/2018 6:58 PM WSN:[id number]
--- NOTE | 2018-02-26 19:07 | RADIOLOGY IMAGING REPORT ---
FACILITY: [facility] [place] PATIENT NAME: Venita Del Valle : 1960 MR: [id number] V: [id number] EXAM DATE: ORDERING PHYSICIAN: HAROON MERCADO TECHNOLOGIST: Location: Patient: Venita Del Valle : 1960 Visit/Account:[id number] Date of Sevice: 02/26/2018 CT Head without contrast Indication: Confusion. Comparison: 08/08/2010. Technique: Axial CT images were obtained through the brain from the skull base to the vertex without administration of IV contrast. Reformatted coronal and sagittal images were also obtained. One of the following dose optimization techniques was utilized in the performance of this exam: autom ated exposure control; adjustment of the mA and/or kV according to the patient's size; or use of an i terative reconstruction technique. Specific details can be referenced in the facility's radiology CT exam operational policy. Findings: No evidence of mass, mass effect, or midline shift. No acute intracranial hemorrhage or acute territorial infarction. No extra-axial fluid collection or hydrocephalus. No abnormal density. Polanco/white matter differentiat ion appears normal. Bony structures show no fractures or aggressive bony lesions. There is a calcific density which appears to be emanating from the superior right frontal bone and me asures 8 mm. Previously this measured 4 mm. No suspicious characteristics. Sinuses and mastoids visualized are clear. IMPRESSION: 1. No acute intracranial abnormality. 2. Nonaggressive benign-appearing round calcific density emanating from the superior right frontal jarad ne. This is more prominent than previous examination. This may represent a bony exostosis. There is n o sequelae and no aggressive features. Report Dictated By: Graeme Allred at 02/26/2018 6:58 PM Report E-Signed By: Graeme Allred at 02/26/2018 7:03 PM WSN:[id number]
[2018-02-26] MEDS ORDERED: DOXYCYCLINE HYCL 100 MG TAB TH PO ONE (19:30)
[2018-02-26] MEDS ORDERED: MUPI15CR10 TP (19:32)
[2018-02-26] MEDS ORDERED: DOXY-179 PO (19:32)
[2018-02-26 19:39] VITALS: BP 132/85
== END 2018-02-26 19:46 | disposition home or self-care (01) ==
LOC: ER 18:01
DX: H60.392 Other infective otitis externa, left ear (principal); H92.02 Otalgia, left ear
CPT/HCPCS: 70450; 71046; 81001; 85025; 99284; J7030; 82040; 82247; 82310; 82374; 82435; 82565; 82947; 84075; 84132; 84155; 84295; 84450; 84460; 84520

== ENCOUNTER 2018-03-23 18:06 | Emergency (ER) | payer MEDICARE, MEDICAID ==
[~2018-03-23 18:06] MED LIST changes: +DOXY-179 PO; +MUPI15CR10 TP
--- NOTE | 2018-03-23 18:17 | ER Report ---
History and Physical Time Seen By MD: 18:17 HPI/ROS CHIEF COMPLAINT: Back pain HISTORY OF PRESENT ILLNESS: This is a 57-year-old female. Gradual onset of worsening back pain over the last few days. She feels it in the upper lumbar lower thoracic area of the right side. Pain does not radiate. Nothing seems to make it better despite trying some tramadol and Naprosyn at home. Moving does make it worse. She has no bowel or bladder incontinence, no nausea. No dysuria. Denies any shortness of breath or abdominal pain. No acute injury. She does have a history of degenerative disc disease in the past and she feels like she has just been overdoing it with crafts and moving things around in the house. No weakness. REVIEW OF SYSTEMS: Respiratory: No cough, no dyspnea. Cardiovascular: No chest pain, no palpitations. Gastrointestinal: No vomiting, no abdominal pain. Musculoskeletal: No other musculoskeletal pain. Allergies: Coded Allergies: sulfamethoxazole (Verified Allergy, Severe, CHEST TIGHTNESS/SOB, 03/23/18) trimethoprim (Verified Allergy, Severe, CHEST TIGHTNESS/SOB, 03/23/18) Penicillins (Verified Allergy, Mild, FLU SYMPTOMS, 03/23/18) celecoxib (Verified Adverse Reaction, Severe, SEVERE LEG SPASMS, 03/23/18) cephalexin (Verified Adverse Reaction, Severe, SEVERE HEADACHE, 03/23/18) clarithromycin (Verified Adverse Reaction, Severe, NAUSEA/VOMITING, 03/23/18) AND SEVERE HEADACHE. levofloxacin (Verified Adverse Reaction, Severe, THRUSH, 03/23/18) Uncoded Allergies: ADHESIVE FORM LIDOCAINE PATCHES (Allergy, Intermediate, HEADACHE, 09/07/11) Home Meds Active Scripts Cyclobenzaprine Hcl (CYCLOBENZAPRINE HCL) 10 Mg Tablet, 10 MG PO Q8H PRN for MUSCLE SPASMS, #20 TAB 0 Refills Prov:YASIR EPPERSON MD 03/23/18 Ketorolac Tromethamine (KETOROLAC TROMETHAMINE) 10 Mg Tab, 10 MG PO Q6H PRN for PAIN, #12 TAB 0 Refills Prov:YASIR EPPERSON MD 03/23/18 Mupirocin Calcium (BACTROBAN) 15 Gm Cream..g., 1 SUHAS TP TID for 7 Days, #1 TUBE Prov:HAROON MERCADO 02/26/18 Reported Medications Mirtazapine (MIRTAZAPINE) 30 Mg Tablet, 30 MG PO QHS 11/08/17 Levothyroxine Sodium (SYNTHROID) 112 Mcg Tablet, 112 MCG PO QDAY, TAB 11/08/17 Pregabalin (LYRICA) 150 Mg Capsule, 150 MG PO BID, CAPSULE 11/08/17 Metformin Hcl (METFORMIN HCL) 500 Mg Tablet, 1 TAB PO BID, TAB 11/08/17 Simvastatin (SIMVASTATIN) 10 Mg Tablet, 10 MG PO HS, TAB 10/05/15 Cetirizine Hcl (Zyrtec) 10 Mg Capsule, 10 MG PO PRN 09/07/11 Tramadol Hcl (Ultram) 50 Mg Tab, 100 MG PO QID, 0 Refills 10/25/10 Famotidine (Pepcid) 20 Mg Tab, 20 MG PO BID, 0 Refills 10/25/10 Diazepam (Valium) 5 Mg Tab, 5 MG PO QID, 0 Refills 10/25/10 Valacyclovir Hcl (Valtrex) 1,000 Mg Tablet, 1000 MG PO DAILY, 0 Refills 10/25/10 Escitalopram Oxalate (Lexapro) 20 Mg Tablet, MG PO QDAY, 0 Refills 10/25/10 Discontinued Reported Medications Baclofen (Lioresal) 10 Mg Tab, 20 MG PO BID, 0 Refills 10/25/10 Discontinued Scripts Doxycycline Hyclate (DOXYCYCLINE HYCLATE) 100 Mg Tablet, 100 MG PO BID, #12 TAB Prov:HAROON MERCADO [facility] 02/26/18 Reviewed Nurses Notes: Yes Hx Smoking: Yes (OCC) Smoking Status: Light Tobacco Smoker 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 B/P (MAP) 96/60 (72) 107/75 (86) Pulse Ox 97 Physical Exam General appearance: alert no distress. Back: Thoracic spine has no spinal tenderness but does have some right-sided paraspinal tenderness. Similar in the lumbar spine. Gastrointestinal: Abdomen is soft, non tender, no masses.. Skin: No lesions and no rashes. Vascular: Normal capillary refill and pulses to feet. Neurological: Motor function: leg strength normal and symmetric for both legs Sensory function: normal for all leg dermatomes. Straight leg raise negative to 70 degrees. DIFFERENTIAL DIAGNOSIS: After history and physical exam differential diagnosis was considered for back pain including muscular strain, herniated disc, intra- abdominal and renal causes. Medical Decision Making ED Course/Re-evaluation ED Course Based on her findings as noted above, I recommended against imaging. We gave Toradol 60 mg IM and Norflex 60 mg IM. She had significant improvement and while still having pain is moving much easier. We will continue conservative management and I did recommend getting in touch with physical therapy and gave her prescription for this and she will follow-up with her primary care provider as well. Decision to Disposition Date: Mar 23, 2018 Decision to Disposition Time: 19:21 Depart Departure Latest Vital Signs Vital Signs Date Time Temp Pulse Resp B/P (MAP) Pulse Ox O2 Delivery O2 Flow Rate FiO2 03/23/18 19:36 ??? 107/75 (86) 97 03/23/18 18:14 98.6 22 Nasal Cannula Impression: Primary Impression: Back strain Additional Impression: Degenerative disc disease, lumbar Condition: Improved Disposition: HOME OR SELF-CARE Referrals: PAMELLA BUNCH DO (PCP) New Scripts Cyclobenzaprine Hcl (CYCLOBENZAPRINE HCL) 10 Mg Tablet 10 MG PO Q8H PRN for MUSCLE SPASMS, #20 TAB 0 Refills Prov: YASIR EPPERSON MD 03/23/18 Ketorolac Tromethamine (KETOROLAC TROMETHAMINE) 10 Mg Tab 10 MG PO Q6H PRN for PAIN, #12 TAB 0 Refills Prov: YASIR EPPERSON MD 03/23/18 Patient Instructions: Low Back Strain (ED), Thoracic Back Strain (ED) Additional Instructions: You can use your Tramadol as needed for pain. Take Toradol 10mg, one every 6 hours as needed for pain. Take Flexeril 10mg, one every 8 hours as needed for pain and muscle spasm. Follow-up with Dr. Bunch. Consider restarting physical therapy. Problem Qualifiers Primary Impression: Back strain Encounter type: initial encounter Qualified Codes: S39.012A - Strain of muscle, fascia and tendon of lower back, initial encounter YASIR EPPERSON MD Mar 23, 2018 18:17
[2018-03-23] MEDS ORDERED: KETOROLAC 60 MG/2 ML VIAL IM ONE (18:30)
[2018-03-23] MEDS ORDERED: ORPHENADRINE 60MG/2ML INJ IM ONE (18:30)
[2018-03-23] MEDS ORDERED: CYCLOBENZAPRINE HCL 10 MG TH PO ONE (19:20)
[2018-03-23] MEDS ORDERED: KETOROLAC TROM 10 MG TAB TH PO ONE (19:20)
[2018-03-23] MEDS ORDERED: CYCL10TA29 PO (19:22)
[2018-03-23] MEDS ORDERED: KET10 PO (19:22)
[2018-03-23 19:36] VITALS: BP 107/75
== END 2018-03-23 19:38 | disposition home or self-care (01) ==
LOC: ER 18:46
DX: S39.012A Strain of muscle, fascia and tendon of lower back, initial encounter (principal); M51.36 Other intervertebral disc degeneration, lumbar region
CPT/HCPCS: 96372; 99283; J1885; J2360